=== PATIENT | female | born 1990 | race African-American/Black ===

== ENCOUNTER 2019-03-11 17:08 | Emergency (ER) | payer MEDICAID, OTHER ==
[~2019-03-11] VITALS: Wt 67.3 kg
[~2019-03-11 17:08] MED LIST: FERR-31 PO; PNV1TABL43 PO
--- NOTE | 2019-03-11 22:29 | ERD ---
ER Documentation Chief Complaint Chief Complaint states got stuck with tb syringe 3 days ago right 2nd finger tip HPI 28-year-old female, works as a DOG POUND ATTENDANT at a [employer] and currently is a 27 weeks , presents to the emergency department after sustaining an accidental needlestick injury at work that occurred on Monday at 1 AM approximately. Per patient, her current status is negative for HIV and hepatitis, the status of the patient is unknown. According to the patient, she was referred by her TECHNICIAN to start postexposure prophylaxis. ROS All systems reviewed and are negative except as per history of present illness. Medications Home Meds Active Scripts Emtricitabine-Tenofovir* (Truvada*) 200-300 Mg Tablet, 1 TAB PO DAILY for 30 Days, TAB Prov:NIKOLAY FONTENOT MD 03/12/19 Raltegravir Potassium* (Isentress*) 400 Mg Tablet, 400 MG PO BID for 30 Days, #60 TAB Prov:NIKOLAY FONTENOT MD 03/12/19 Reported Medications Ferrous Sulfate (Iron Supplement) 1 Tab Tablet, 1 TAB PO DAILY 06/28/14 Vit/Fe Fumarate/Fa* ( Vitamin Tablet*) 1 Tab Tablet, 1 TAB PO DAILY, TAB 06/28/14 Allergies Allergies: Coded Allergies: hydrocodone (Verified Allergy, Severe, SOB, 06/28/14) PMhx/Soc Medical and Surgical Hx: pt denies Medical Hx, pt denies Surgical Hx Hx Alcohol Use: No Hx Substance Use: No Hx Tobacco Use: No Smoking Status: Never smoker FmHx Family History: No diabetes, No coronary disease Physical Exam Vitals Vital Signs Date Temp Pulse Resp B/P (MAP) Pulse Ox O2 O2 Flow FiO2 Time Delivery Rate 03/12/19 97.8 72 18 90/57 (68) 100 Room Air 00:42 03/11/19 98.6 87 18 119/57 98 21:09 (77) Physical Exam Const: No acute distress Head: Atraumatic Eyes: Normal Conjunctiva ENT: Normal External Ears, Nose and Mouth. Neck: Full range of motion. No meningismus. Resp: Clear to auscultation bilaterally Cardio: Regular rate and rhythm, no murmurs Abd: Soft, uterus gravid, non tender, non distended. Normal bowel sounds Skin: No petechiae or rashes Back: No midline or flank tenderness Ext: No cyanosis, or edema Neur: Awake and alert Psych: Normal Mood and Affect Results 24 hrs Laboratory Tests Test 03/11/19 22:56 Hepatitis B Surface Antigen NEGATIVE Hepatitis B Surface Antibody NEGATIVE Hepatitis C Antibody NEGATIVE HIV (1&2) Antibody NEGATIVE Procedures/MDM At the time of discharge, patient is stable, vital signs in normal range. Based on the mechanism of the needlestick injury, I consider that the patient is at a low risk for HIV infection; however, the patient is requesting postexposure prophylaxis; therefore, I will give a prescription, side effects and contraindications of the medications were discussed with the patient. During the ED course the patient remained stable, no new complaints. Results and clinical impression discussed with the patient who agrees with management. The patient is stable to be treated outpatient and will be discharged home with a Rx for truvada and Isentress, some side effects of prescribed medications (headache, rash, nausea, vomiting, diarrhea, drowsiness, habituation, bleeding, hypertension, interactions with other medications) were reviewed. Follow up with the primary care provider in the next 48h has been recommended. If symptoms persist, worsen or new symptoms develop, then patient should return to the ED immediately. Instructions explained and given directly by me to the patient with acknowledgment and demonstrated understanding. Disclaimer: Inadvertent spelling and grammatical errors are likely due to EHR/dictation software use and do not reflect on the overall quality of patient care. Also, please note that the electronic time recorded on this note does not necessarily reflect the actual time of the patient encounter. Departure Diagnosis: Primary Impression: Needlestick injury accident Additional Impression: 27 weeks gestation of Condition: Stable Patient Instructions: Standard Precautions: [place] and Other [place] Additional Instructions: Thank you very much for allowing us to participate in your care. Your health and safety is our top priority at [facility]. Call your primary care doctor TOMORROW for an appointment during the next 2-4 days and bring all the information provided. Have prescriptions filled and follow precisely the directions on the label. If the symptoms get worse and your provider is unavailable, return to the Emergency Department immediately. NIKOLAY FONTENOT MD March 11, 2019 22:29
[2019-03-12] MEDS ORDERED: EMTR1TAB11 PO (00:16)
[2019-03-12] MEDS ORDERED: ISEN400 PO (00:16)
[2019-03-12 00:42] VITALS: BP 90/57; PULSE 72; RESP 18
== END 2019-03-12 00:42 | disposition home or self-care (01) ==
LOC: FTE 17:08
DX: O9A.212 Injury, poisoning and certain other consequences of external causes complicating pregnancy, second trimester (principal); S61.230A Puncture wound without foreign body of right index finger without damage to nail, initial encounter; W46.0XXA Contact with hypodermic needle, initial encounter; Y92.89 Other specified places as the place of occurrence of the external cause; Z3A.27 27 weeks gestation of pregnancy
CPT/HCPCS: 86703; 86706; 86803; 87340; Z7502; 99283

== ENCOUNTER 2019-05-29 07:50 | Inpatient (IN) | payer OTHER ==
[~2019-05-29] VITALS: Ht 157.5 cm; Wt 72.3 kg
[~2019-05-29 07:50] MED LIST changes: +EMTR1TAB11 PO; +ISEN400 PO
[2019-05-29 08:08] VITALS: BP 102/61; PULSE 73; RESP 18; Ht 157.5 cm; Wt 72.3 kg
--- NOTE | 2019-05-29 08:40 | PREAC ---
Date/Time of Note Date/Time of Note DATE: 05/29/19 TIME: 08:39 Anesthesia Eval and Record Evaluation Time Pre-Procedure Interview DATE: 05/29/19 TIME: 08:39 Age 28 Sex female NPO: 8 hrs Preoperative diagnosis repeat c sectionx2 Planned procedure c section Past Medical History Past Medical History: Includes : Gestational age: (due 06/03) Surgery & Anesthesia Issues No known issue Meds Anticoagulation: No Beta Georgette within 24 hr: No Reason Beta Georgette not given: Pt. not on B-Georgette Active Scripts Emtricitabine-Tenofovir* (Truvada*) 200-300 Mg Tablet, 1 TAB PO DAILY for 30 Days, TAB Prov:NIKOLAY FONTENOT MD 03/12/19 Raltegravir Potassium* (Isentress*) 400 Mg Tablet, 400 MG PO BID for 30 Days, #60 TAB Prov:NIKOLAY FONTENOT MD 03/12/19 Reported Medications Ferrous Sulfate (Iron Supplement) 1 Tab Tablet, 1 TAB PO DAILY 06/28/14 Vit/Fe Fumarate/Fa* ( Vitamin Tablet*) 1 Tab Tablet, 1 TAB PO DAILY, TAB 06/28/14 Meds reviewed: Yes Allergies Coded Allergies: hydrocodone (Verified Allergy, Severe, SOB, 06/28/14) Allergies Reviewed: Yes Labs/Studies Labs Reviewed: Reviewed by anesthesiologist test: Positive Pre-procedure Exam Airway: Adequate mouth opening Mallampati: Mallampati I Teeth: Normal Lung: Normal Heart: Normal ASA Physical Status ASA physical status: 2 Emergency: None Planned Anesthetic Neuraxial: Spinal Planned Pain Management Sub-arachniod narcotics Pre-operative Attestations Prior to commencing anesthesia and surgery, the patient was re-evaluated, there was verification of: *The patient's identity *The results of appropriate recent lab work and preoperative vital signs *The above evaluation not changing prior to induction *Anesthetic plan, risk benefits, alternative and complications discussed with patient/family; questions answered; patient/family understands, accepts and w ishes to proceed. WENCESLAO WELLS MD May 29, 2019 08:40
[2019-05-29] MEDS ORDERED: LACTATED RINGER'S 1,000 ML IV SCH ×2 (08:50→16:22)
--- NOTE | 2019-05-29 08:58 | HP ---
Date/Time of Note Date/Time of Note DATE: 05/29/19 TIME: 08:56 OB - History Hx of Present Chief Complaint: scheduled Estimated Due Date: Jun 03, 2019 : 4 Para: 2 Spontaneous : 1 Therapeutic : 0 Care: Good Care Ultrasounds: Normal mid trimester US Obstetrical Complications: None Medical Complications: None Past Family/Social History * Past Medical, Surgical, Family and Obstetric Histories reviewed from chart. GBS Status: Positive OB Admission Exam Physical Exam HEENT: WNL Heart: Rhythm Normal Lungs: Clear, Equal Abdomen: WNL Extremities: Normal Reflexes: Normal Heart Rate: 120's Accelerations: Accelerations Present Decelerations: No Decelerations Varibility: Moderate OB Assessment/Plan Reason for admission: section Plan: Section NORM GOODSON MD May 29, 2019 08:58
[2019-05-29] MEDS ORDERED: AZITHROMYCIN 500MG/NS (PMX) 250 ML IV SCH (09:00)
[2019-05-29] MEDS ORDERED: KETOROLAC 30 MG INJ IV PRN (09:00)
[2019-05-29] MEDS ORDERED: CEFAZOLIN 2 GM/50 ML (PMX) 50 ML IVPB SCH (09:00)
[2019-05-29] MEDS ORDERED: CITRIC ACID/NA CITRATE 30 ML CUP PO ONE (09:00)
[2019-05-29] MEDS ORDERED: MISOPROSTOL 200 MCG TAB PR PRN ×2 (09:00→16:30)
[2019-05-29] MEDS ORDERED: OXYTOCIN 30 UNITS/LR 500 ML IV PRN ×2 (09:00→16:30)
[2019-05-29] MEDS ORDERED: METHYLERGONOVINE 0.2 MG INJ IM PRN ×2 (09:00→16:30)
[2019-05-29] MEDS ORDERED: DIPHENHYDRAMINE 50 MG INJ IV PRN ×2 (09:00)
[2019-05-29] MEDS ORDERED: CARBOPROST 250 MCG INJ IM PRN ×2 (09:00→16:30)
[2019-05-29] MEDS ORDERED: NALOXONE (0.4 MG/ML) INJ IV PRN (09:00)
[2019-05-29] MEDS ORDERED: morphine 2 MG INJ IV PRN ×6 (09:00)
[2019-05-29] MEDS ORDERED: ONDANSETRON 4 MG INJ IV PRN ×2 (09:00)
[2019-05-29] MEDS ORDERED: CEFAZOLIN 2 GM/50 ML (PMX) 50 ML IVPB ONE (09:08)
[2019-05-29] MEDS ORDERED: LACTATED RINGER'S 500 ML IV SCH (09:30)
[2019-05-29] MEDS ORDERED: OXYTOCIN 30 UNITS/LR 500 ML IV ONE ×2 (09:40→10:50)
[2019-05-29] MEDS ORDERED: KETOROLAC 30 MG INJ ONE (09:40)
[2019-05-29] MEDS ORDERED: ONDANSETRON 4 MG INJ ONE (09:40)
[2019-05-29] MEDS ORDERED: morphine SULFATE/PF (10 MG/10 ML) INJ ONE (09:40)
[2019-05-29] MEDS ORDERED: METOCLOPRAMIDE 10 MG INJ ONE (09:40)
[2019-05-29] MEDS ORDERED: FENTAnyl 50 MCG/ML VIAL ONE (10:32)
--- NOTE | 2019-05-29 12:51 | OPR ---
Operative Report Planned Procedure Procedure date May 29, 2019 Procedure(s) Repeat low transverse Cesrean Performed by Norm Goodson MD Archives Technician: REJI OJEDA Anesthesiologist: WENCESLAO WELLS MD Pre-procedure diagnosis Term with previous [id number] Anesthesia Type: [id number] spinal Post-Procedure Post-procedure diagnosis Same Findings Live Baby [], Apgars [] and [], weight [], position [], [] presentation []cord. Estimated Blood Loss: other (600 ml) Specimen(s) Placenta Grafts/Implant(s) none Complication(s) none Pt Condition post procedure: stable Disposition: PACU Procedure Description After spinal anesthesia had been dosed and tested, the patient was placed supine on the Operating Room table and prepped and draped in the usual sterile fashion for a section. A Pfannenstiel incision was made through the abdomen and carried down to the level of the fascia. The fascia was incised transversely and then the rectus muscle was dissected off the fascia and split bluntly in the midline. The peritoneum was the entered bluntly. The bladder flap was created and then a low segment transverse incision was made with a knife on the uterus until the amniotic fluid was encountered. The incision was widened with bandage scissors. A hand was inserted elevating the vertex and then the head delivered with assistance of fundal pressure.. The nares and oropharynx were bulb suctioned, and the remainder of the was delivered out of the maternal abdomen. . The cord was doubly clamped and cut, and the infant handed off to the awaiting resuscitation team who was present for delivery. The placenta was then manually extracted and the interior uterus was cleaned with a dry lap sponge. The uterus was exteriorized, and the incision of the ut erus closed with a running interlocking stitch of Monocryl suture. The uterus was replaced in the maternal abdomen. The abdomen was cleared of clots. The peritoneum was closed with 2-0 Vicryl. The fascia was closed with a running suture of #1 Vicryl suture meeting in the midline. The subcutaneous tissue was made hemostatic with Bovie cautery, and the skin approximated using diego. The patient tolerated the procedure well. All sponge and instrument counts were correct. She was taken to the recovery room in stable condition. NORM GOODSON MD May 29, 2019 12:51
[2019-05-29 16:00] VITALS: BP 111/54; PULSE 62; RESP 18
[2019-05-29] MEDS ORDERED: OXYTOCIN 30 UNITS/LR 500 ML IV SCH (16:22)
[2019-05-29] MEDS ORDERED: OXYCODONE/ACETAMINOPHEN (5/325) TAB PO PRN ×2 (16:30)
[2019-05-29] MEDS ORDERED: LANOLIN HPA 1 PKT TOP PRN (16:30)
[2019-05-29 20:00] VITALS: BP 103/52; PULSE 54; RESP 19
[2019-05-29] MEDS: SENNA/DOCUSATE NA (8.6MG/50MG) TAB PO SCH (21:00)
[2019-05-30 04:00] VITALS: BP 98/52; PULSE 60; RESP 19
[2019-05-30 08:30] VITALS: BP 108/55; PULSE 60; RESP 18
[2019-05-30] MEDS: SENNA/DOCUSATE NA (8.6MG/50MG) TAB PO SCH ×2 (09:24→21:20)
--- NOTE | 2019-05-30 09:29 | PAC ---
Date/Time of Note Date/Time of Note DATE: 05/30/19 TIME: 09:29 Post-Anesthesia Notes Post-Anesthesia Note Last documented vital signs Vital Signs Date Temp Pulse Resp B/P (MAP) Pulse Ox O2 O2 Flow FiO2 Time Delivery Rate 05/30/19 98.0 60 18 108/55 96 Room Air 08:30 (72) Activity: WNL Respiratory function: WNL Cardiovascular function: WNL Mental status: Baseline Pain reasonably controlled: Yes Hydration appropriate: Yes Nausea/Vomiting absent: No WENCESLAO WELLS MD May 30, 2019 09:29
--- NOTE | 2019-05-30 09:31 | OPPN ---
Date/Time of Note Date/Time of Note DATE: 05/30/19 TIME: 09:30 Anesthesia Follow up Anesthesia Follow up Last documented vital signs Vital Signs Date Temp Pulse Resp B/P (MAP) Pulse Ox O2 O2 Flow FiO2 Time Delivery Rate 05/30/19 98.0 60 18 108/55 96 Room Air 08:30 (72) Respiratory function: WNL Cardiovascular function: WNL Comments A 28 year old s/p spinal with duramorph for post op apin. POD#1 is fine. No pain, N/V, itching, headache, neural deficit, or SOB WENCESLAO WELLS MD May 30, 2019 09:31
[2019-05-30] MEDS ORDERED: traMADol-APAP 37.5-325 1 TAB PO PRN (12:00)
[2019-05-30 16:00] VITALS: BP 108/53; PULSE 73; RESP 18
[2019-05-30] MEDS: IBUPROFEN 800 MG TAB PO SCH ×2 (16:04→21:19)
--- NOTE | 2019-05-30 19:13 | QN ---
Documentation Comment No complaint Afebrile VSS Abdomen soft ND POD #1 Stable Ambulate Advance diet. NORM GOODSON MD May 30, 2019 19:13
[2019-05-30 19:35] VITALS: BP 121/56; PULSE 96; RESP 20
[2019-05-31] MEDS: DIPHENHYDRAMINE 50 MG CAP PO SCH ×2 (00:26→21:18)
[2019-05-31 04:09] VITALS: BP 100/52; PULSE 67; RESP 20
[2019-05-31] MEDS: IBUPROFEN 800 MG TAB PO SCH ×3 (06:18→21:18)
[2019-05-31 08:15] VITALS: BP 101/59; PULSE 72; RESP 16
[2019-05-31] MEDS: traMADol-APAP 37.5-325 1 TAB PO PRN ×2 (08:22→19:55)
[2019-05-31] MEDS: SENNA/DOCUSATE NA (8.6MG/50MG) TAB PO SCH ×2 (09:28→21:18)
[2019-05-31 16:05] VITALS: BP 111/59; PULSE 60; RESP 18
[2019-05-31 19:40] VITALS: BP 111/56; PULSE 68; RESP 18
[2019-05-31] MEDS ORDERED: MAGNESIUM HYDROXIDE 30ML CUP PO ONE (20:00)
--- NOTE | 2019-05-31 20:11 | DS ---
Date/Time of Note Date/Time of Note DATE: 05/31/19 TIME: 20:11 Obstetrical Discharge Record Final Diagnosis Final Diagnosis: Term delivered Section Section: Repeat Condition on Discharge Physical Assessment Voiding: Yes Bowel Movement: Yes Breast: Soft, non-tender, Filling Fundus: Firm Calf Tenderness: No Patient Condition: Stable NORM GOODSON MD May 31, 2019 20:11
[2019-05-31] MEDS ORDERED: DIPHENHYDRAMINE 50 MG CAP PO SCH (21:00)
[2019-06-01 03:42] VITALS: BP 107/5; PULSE 64; RESP 17
[2019-06-01] MEDS: IBUPROFEN 800 MG TAB PO SCH (05:25)
[2019-06-01] MEDS ORDERED: DIPHTH/TET/ACEL PERTUSS (ADULT) 0.5 ML VIAL IM* ONE (09:00)
[2019-06-01] MEDS: SENNA/DOCUSATE NA (8.6MG/50MG) TAB PO SCH (09:06)
--- NOTE | 2019-06-02 14:43 | DELSUM ---
Delivery Summary A-C Datetime Report Generated by CPN: 06/02/2019 14:43 DELIVERY PERSONNEL Biomass Production Manager: Carr, Ariana MATERNAL INFORMATION Delivery Anesthesia: Spinal Medications in Delivery: per anes report Delivery QBL (ml): 600 Placenta Cultured: No Maternal Complications: None LABOR SUMMARY EDC: 06/03/2019 00:00 No. Babies in Womb: 1 Attempted: No Labor Anesthesia: None LABOR INFORMATION Reason for Induction: Not Applicable Group B Beta Strep: Positive Antibiotics # of Doses: 1 Steroids Given: None Reason Steroids Not Administered: Not Applicable MEMBRANES Membranes Rupture Method: Artificial Rupture of Membranes: 05/29/2019 10:18 Length of Rupture (hr): 0.00 Amniotic Fluid Color: Clear Amniotic Fluid Amount: Moderate Amniotic Fluid Odor: None STAGES OF LABOR Stage 3 hr: 0 Stage 3 min: 2 CSECTION DELIVERY Primary Indication: Repeat Elective Secondary Indication: Repeat Elective CSection Urgency: Elective CSection Incidence: Repeat Labor: No Labor Elective: Elective CSection Incision: Lower Uterine Transverse BABY A INFORMATION Delivery Date/Time: 05/29/2019 10:18 Method of Delivery: Born in Route : No : N/A Forceps: N/A Vacuum Extraction: N/A Shoulder Dystocia : No SHOULDER DYSTOCIA BABY A Infant Delivery Date/Time: 05/29/2019 10:18 PRESENTATION/POSITION BABY A Presentation: Cephalic Cephalic Presentation: Vertex Vertex Position: Left Occipital Anterior Breech Presentation: N/A PLACENTA INFORMATION BABY A Placenta Delivery Time : 05/29/2019 10:20 Placenta Method of Delivery: Manual Removal Placenta Status: Delivered SCORES BABY A Heart Rate 1 min: >100 bpm Resp Effort 1 min: Good Cry Reflex Irritability 1 min: Cough/Sneeze/Pulls Away Muscle Tone 1 min: Active Motion Color 1 min: Blue/Pale Resuscitation Effort 1 min: Tactile Stimulation SCORE 1 MIN: 8 Heart Rate 5 min: >100 bpm Resp Effort 5 min: Good Cry Reflex Irritability 5 min: Cough/Sneeze/Pulls Away Muscle Tone 5 min: Active Motion Color 5 min: Blue/Pale Resuscitation Effort 5 min: Tactile Stimulation; Oxygen SCORE 5 MIN: 8 INFANT INFORMATION BABY A Gestational Age at Delivery: 39.2 Gestational Status: Full Term- 39- 40.6 Weeks Outcome : Liveborn, with signs of life Condition : Stable Infant Sex: Male IDENTIFICATION/MEDS BABY A ID Band Number: [id number] ID Band Location: Right Leg; Left Arm Sensor Applied: No Vitamin K Given : Not Given Erythromycin Given: Not Given WEIGHT/LENGTH BABY A Infant Birthweight (gm): 3330 Infant Weight (lb): 7 Weight (oz): 5 Infant Length (in): 19.50 Length (cm): 49.53 CORD INFORMATION BABY A No. Cord Vessels: 3 Nuchal Cord : N/A Cord Blood Taken: Yes Suction: Mouth; Nose ASSESSMENT BABY A Complications: None Physical Findings at Delivery: Within Normal Limits Infant Respirations: Appears Normal Box Attacher/ALS Called : Yes Care By: RT and RN Transferred To: Remains with Mother
== END 2019-06-01 14:43 | disposition home or self-care (01) | DRG 788 ==
LOC: L-D 07:50 → PP1 15:59
PROVIDERS: ADMIT Obstetrics & Gynecology; ATTEND Obstetrics & Gynecology
PROC: 10D00Z1 Extraction of Products of Conception, Low, Open Approach (ICD-10-PCS; principal; 2019-05-29 09:00)
DX: O34.211 Maternal care for low transverse scar from previous cesarean delivery (principal); Z3A.39 39 weeks gestation of pregnancy; Z37.0 Single live birth
CPT/HCPCS: 85025; 85610; 85730; 86592; 86850; 86900; 86901; 88307; J0456; J0690; J1200; J1885; J2274; J2405; J2590; J2765; J3010; J7120